=== PATIENT | female | born 1975 | race Caucasian/White ===

== ENCOUNTER 2018-06-15 05:55 | Day surgery (SDC) | payer OTHER | END 2018-06-15 11:55 | disposition home or self-care (01) | LOC: CIR.AMB 05:55 | DX: N84.0 Polyp of corpus uteri (principal) ==

== ENCOUNTER 2019-03-30 12:22 | Emergency (ER) | payer OTHER ==
[~2019-03-30] VITALS: Ht 167.6 cm; Wt 57.2 kg
== END 2019-03-30 17:24 | disposition home or self-care (01) ==
LOC: ER 12:22
DX: B34.8 Other viral infections of unspecified site (principal)